=== PATIENT | female | born 1990 | race Caucasian/White ===

== ENCOUNTER 2017-04-10 20:19 | Emergency (ER) | payer OTHER ==
[~2017-04-10] VITALS: Ht 175.3 cm; Wt 72.3 kg
[~2017-04-10 20:19] MED LIST: ENDOCET 5-3251 EACH PO; FLEXERIL10 MG PO; GUMMI BEAR MUL1 EACH PO; HYDROMORPHONE HC2 MG; IBUPROFEN800 MG PO; INDOCIN25 MG PO; KEFLEX500 MG PO; Levaquin PO; MACROBID100 MG PO; NOHOMEMEDS; PRENATAL1 EACH PO; PRENATE CHEWABLE1 MG PO; SUBUTEX PO; VALIUM
[2017-04-10 22:24] VITALS: BP 117/67
== END 2017-04-10 22:25 | disposition home or self-care (01) ==
LOC: EME 20:19
DX: O26.892 Other specified pregnancy related conditions, second trimester (principal); R10.2 Pelvic and perineal pain; V43.52XA Car driver injured in collision with other type car in traffic accident, initial encounter; Y92.410 Unspecified street and highway as the place of occurrence of the external cause; Z3A.22 22 weeks gestation of pregnancy; O99.342 Other mental disorders complicating pregnancy, second trimester; F32.9 Major depressive disorder, single episode, unspecified; F41.9 Anxiety disorder, unspecified; Z87.891 Personal history of nicotine dependence; Z87.440 Personal history of urinary (tract) infections
CPT/HCPCS: 76805; 99281; 99284

== ENCOUNTER 2017-08-11 11:23 | Inpatient (IN) | payer OTHER ==
[~2017-08-11] VITALS: Ht 175.3 cm; Wt 77.3 kg
[2017-08-11] VITALS (13 sets, daily range): BP systolic 106–134; BP diastolic 62–77
[2017-08-11 12:50] LABS: AMPHETAMINE NEGATIVE (500 ng/mL); BARBITURATES NEGATIVE (200 ng/mL); BENZODIAZEPINES NEGATIVE (150 ng/mL); BUPRENORPHINE PRESUMPTIVE POSITIVE (10 ng/mL); COCAINE NEGATIVE (150 ng/mL); METHADONE NEGATIVE (200 ng/mL); METHAMPHETAMINE NEGATIVE (500 ng/mL); OPIATES (MORPHINE) NEGATIVE (100 ng/mL); OXYCODONE NEGATIVE (100 ng/mL); PHENCYCLIDINE NEGATIVE (25 ng/mL); PROPOXYPHENE NEGATIVE (300 ng/mL); THC CANNABINOIDS NEGATIVE (50 ng/mL); TRICYCLIC ANTIDEPRESSANTS NEGATIVE (300 ng/mL)
[2017-08-11 12:53] LABS: BASOPHIL (%) 0.3 % (0-1); EOSINOPHIL (%) 0.7 % (0-5); EOSINOPHIL COUNT 0.1 K/uL (0-0.3); HEMATOCRIT 32.4 % (36.0-46.0); HEMOGLOBIN 10.6 G/DL (11.9-15.5); IMMATURE GRANULOCYTE (%) 0.6 % (0.0-0.7); LYMPHOCYTE COUNT 1.8 K/uL (1.0-2.8); MCH 27.2 PG (29.0-34.0); MCHC 32.7 G/DL (30.0-36.0); MCV 83.3 FL (83-99); MONOCYTE (%) 6.8 % (3-12); MONOCYTE COUNT 0.9 K/uL (0-0.8); NEUTROPHIL (%) 78.6 % (45-76); NEUTROPHIL COUNT 10.9 K/uL (1.8-6.4); RBC DIS.WIDTH-CV 12.5 % (11.8-14.6); RBC DIS.WIDTH-SD 37.7 % (39-53); RED BLOOD COUNT 3.89 M/uL (3.80-5.20); WHITE BLOOD COUNT 13.8 K/uL (4.1-10.2)
[2017-08-11 13:37] LABS: PLAT.SUFFICIENCY ADEQUATE; PLATELET COUNT 233 K/uL (156-360)
[2017-08-11] MEDS ORDERED: IBUPROFEN800 MG PO (20:02)
[2017-08-12 11:29] VITALS: BP 103/65
[2017-08-12 16:50] VITALS: BP 117/68
[2017-08-12 23:00] VITALS: BP 109/67
== END 2017-08-13 17:38 | disposition home or self-care (01) | DRG 775 ==
LOC: LDRP-OP 11:23 → 2WEST 11:24 → LDRP-OP 09-13 19:29
PROVIDERS: Midwife
DX: O34.219 Maternal care for unspecified type scar from previous cesarean delivery (principal); O70.1 Second degree perineal laceration during delivery; O99.354 Diseases of the nervous system complicating childbirth; G89.21 Chronic pain due to trauma; Z37.0 Single live birth; Z3A.39 39 weeks gestation of pregnancy; Z87.440 Personal history of urinary (tract) infections; V89.2XXS Person injured in unspecified motor-vehicle accident, traffic, sequela
CPT/HCPCS: 85025; 86850; 86900; 86901; C1755; J0571; J3010; J7120